=== PATIENT | female | born 1950 | race Caucasian/White ===

== ENCOUNTER 2019-01-23 05:38 | Emergency (ER) | payer MEDICARE, OTHER ==
[2019-01-23 06:02] VITALS: BP 147/68; PULSE 85
--- NOTE | 2019-01-23 06:56 | EDM.PDOC ---
ED HPI GENERAL MEDICAL PROBLEM - General Chief Complaint: Upper Extremity Injury/Pain Stated Complaint: Right shoulder pain; fall Time Seen by Provider: 01/23/19 06:19 Source of Information: Reports: Patient History Limitations: Reports: No Limitations - History of Present Illness INITIAL COMMENTS - FREE TEXT/NARRATIVE: Patient tripped over a suitcase left in the [place]ilez while trying to go and use the bathroom this morning. Landed on her right shoulder. Has right shoulder pain but denies any other injuries. Did not hit head. No neck/back pain. No numbness or tingling of limbs. No weakness. No other acute pain complaint. Right Shoulder Pain Score (Numeric/FACES): 4 - Related Data Allergies Allergy/AdvReac Type Severity Reaction Status Date / Time sulfamethoxazole Allergy Rash Verified 01/23/19 05:42 [From Bactrim] tramadol Allergy Nausea and Verified 01/23/19 05:42 Vomiting trimethoprim [From Bactrim] Allergy Rash Verified 01/23/19 05:42 Home Meds: Home Meds Albuterol [Ventolin HFA] 8 gm INH Q4H PRN 10/20/15 [History] Aspirin [Tiffany Chewable] 81 mg PO DAILY 10/20/15 [History] Fluticasone Propionate [Flonase] 0 gm NASBOTH DAILY PRN 10/20/15 [History] Fluticasone/Salmeterol [Advair 250-50 Diskus] 1 puff PO DAILY 10/20/15 [History] Ipratropium/Albuterol Sulfate [Iprat-Albut 0.5-3(2.5) mg/3 ml] 1 ampule PO Q4H PRN 10/20/15 [History] Losartan [Cozaar] 1 tab PO DAILY 10/20/15 [History] Montelukast [Singulair] 10 mg PO DAILY 10/20/15 [History] Multivitamin with Minerals [Agapito Multivitamin with Mineral] 1 tab PO DAILY PRN 10/20/15 [History] Simvastatin 1 tab PO DAILY 10/20/15 [History] Venlafaxine [Effexor XR 24 Hr] 75 mg PO DAILY 10/20/15 [History] Omeprazole 40 mg PO DAILY 04/29/16 [History] Melatonin 10 mg PO BEDTIME PRN 01/23/19 [History] Past Medical History HEENT History: Reports: Impaired Vision Other HEENT History: wears glasses Cardiovascular History: Reports: High Cholesterol, Hypertension Respiratory History: Reports: Asthma, COPD Gastrointestinal History: Reports: GERD Musculoskeletal History: Reports: Fracture Psychiatric History: Reports: Depression Endocrine/Metabolic History: Reports: Obesity/BMI 30+ Oncologic (Cancer) History: Reports: Breast - Infectious Disease History Infectious Disease History: Reports: Chicken Pox - Past Surgical History HEENT Surgical History: Reports: Other (See Below) Other HEENT Surgeries/Procedures: Full upper and lower dentures GI Surgical History: Reports: Juan Fundoplication Female Surgical History: Reports: Hysterectomy, Mastectomy, Other (See Below) Oncologic Surgical History: Reports: Mastectomy Social & Family History - Tobacco Use Smoking Status *Q: Former Smoker Used Tobacco, but Quit: Yes Month/Year Tobacco Last Used: 30 - Caffeine Use Caffeine Use: Reports: Coffee, Soda - Recreational Drug Use Recreational Drug Use: No Review of Systems - Review of Systems Review Of Systems: See Below Constitutional: Reports: No Symptoms Eyes: Denies: Blurred Vision, Vision Change Ears: Reports: No Symptoms Nose: Reports: No Symptoms Mouth/Throat: Reports: No Symptoms Respiratory: Reports: No Symptoms Cardiovascular: Reports: No Symptoms GI/Abdominal: Reports: No Symptoms Genitourinary: Reports: No Symptoms Musculoskeletal: Reports: Shoulder Pain, Joint Pain, Muscle Stiffness. Denies: Neck Pain, Arm Pain, Back Pain, Hand Pain, Leg Pain, Foot Pain, Joint Swelling Skin: Reports: No Symptoms Neurological: Reports: No Symptoms Psychiatric: Reports: No Symptoms ED EXAM, GENERAL - Physical Exam Exam: See Below Exam Limited By: No Limitations General Appearance: Alert, WD/WN, No Apparent Distress Eye Exam: Bilateral Eye: EOMI, PERRL Ears: Normal External Exam Nose: No: Nasal Deformity, Nasal Swelling, Nasal Drainage Throat/Mouth: Normal Lips, Normal Voice, No Airway Compromise Head: Atraumatic, Normocephalic Neck: Supple, Non-Tender Respiratory/Chest: No Respiratory Distress, Lungs Clear, Normal Breath Sounds, No Accessory Muscle Use, Chest Non-Tender Cardiovascular: Normal Peripheral Pulses, Regular Rate, Rhythm, No Edema, No Murmur GI/Abdominal: Soft, Non-Tender (Female) Exam: Deferred Rectal (Female) Exam: Deferred Back Exam: Other (mild tenderness over right scapula/posterior rotator cuff). No: CVA Tenderness (L), CVA Tenderness (R) Extremities: Normal Capillary Refill, Limited Range of Motion (right shoulder secondary to pain. Able to touch right hand to opposite hip and move hand behind and touch her back. Pain/discomfort with abduction. Sensation appears intact. Straw Boss intact. No deformity of shoulder noted. Diffuse pain with palpation entire rotator cuff. Right arm otherwise nontender. Scapula appeared intact. Other limbs non-tender. ) Neurological: Alert, Oriented, Normal Cognition, Normal Gait Psychiatric: Normal Affect, Normal Mood Skin Exam: Warm, Dry, Intact, Normal Color Course - Vital Signs Last Recorded V/S: Last Vital Signs Temp 36.6 C 01/23/19 06:01 Pulse 85 01/23/19 06:01 Resp 19 01/23/19 06:01 BP 147/68 H 01/23/19 06:01 Pulse Ox 95 01/23/19 06:01 - Orders/Labs/Meds Orders: Active Orders 24 hr Category Date Time Status Shoulder Comp Rt [CR] Stat Exams 01/23/19 05:58 Taken - Radiology Interpretation Free Text/Narrative:: Xray of shoulder taken. Questionable area noted on scapula on Y view that was felt to be possible fracture. Reviewed by Radiology () and he felt that the xray was normal. - Re-Assessments/Exams Free Text/Narrative Re-Assessment/Exam: Patient's shoulder placed in sling for protection and comfort. Single bottle of T#3 given to the patient to help with pain. Recommend that she get rechecked in 2-3 days by her primary provider. She may consider going to Ortho walk-in at [facility] or [facility] if pain has not improved at all. It may need to be considered to have an MRI to look for soft tissue/ligament damage and this will also allow bony structures to be more closely observed. Precautions reviewed. Departure - Departure Time of Disposition: 06:51 Disposition: Home, Self-Care 01 Condition: Good Clinical Impression: Right shoulder injury Qualifiers: Encounter type: initial encounter Qualified Code(s): S49.91XA - Unspecified injury of right shoulder and upper arm, initial encounter Fall Qualifiers: Encounter type: initial encounter Qualified Code(s): W19.XXXA - Unspecified fall, initial encounter - Discharge Information *PRESCRIPTION DRUG MONITORING PROGRAM REVIEWED*: Not Applicable *COPY OF PRESCRIPTION DRUG MONITORING REPORT IN PATIENT ERIC: Not Applicable Instructions: Shoulder Pain, [id number] Referrals: Annetta Salvador PA-C [Primary Care Provider] - Forms: ED Department Discharge Additional Instructions: Take the T#3 one tablet every 6 hours and add one single regular Tylenol tablet (325mg) so that you also get a full dose of Tylenol to help with the pain. Wear sling for comfort and protection. OK to take the arm out at times to let it hang and perform gentle range of motion exercises. If pain has not improved at all within 2-3 days, get rechecked. You can go to the Ortho walk-in clinic in [place] (both [facility] have one) where Ortho can take a close look at your shoulder and decide if further imaging is needed. Otherwise follow up with your regular provider locally if you prefer. Follow up otherwise as needed if additional problems are experienced. - My Orders Last 24 Hours: My Active Orders 01/23/19 05:58 Shoulder Comp Rt [CR] Stat - Assessment/Plan Last 24 Hours: My Active Orders 01/23/19 05:58 Shoulder Comp Rt [CR] Stat
== END 2019-01-23 07:10 | disposition home or self-care (01) ==
LOC: LL.ED 05:38
DX: S49.91XA Unspecified injury of right shoulder and upper arm, initial encounter (principal); I10 Essential (primary) hypertension; E66.9 Obesity, unspecified; J44.9 Chronic obstructive pulmonary disease, unspecified; K21.9 Gastro-esophageal reflux disease without esophagitis; F32.9 Major depressive disorder, single episode, unspecified; Z90.710 Acquired absence of both cervix and uterus; Z79.82 Long term (current) use of aspirin; Z88.2 Allergy status to sulfonamides; Z88.5 Allergy status to narcotic agent; Z88.1 Allergy status to other antibiotic agents; Z87.891 Personal history of nicotine dependence; W18.09XA Striking against other object with subsequent fall, initial encounter
CPT/HCPCS: 73030-RT; 99283

== ENCOUNTER 2019-05-15 13:14 | Emergency (ER) | payer MEDICARE, OTHER ==
[2019-05-15] MEDS ORDERED: Sodium Chloride 0.9% 10 ML Syringe FLUSH PRN (13:33)
--- NOTE | 2019-05-15 13:33 | EDM.PDOC ---
ED HPI GENERAL MEDICAL PROBLEM - General Chief Complaint: Cardiovascular Problem Stated Complaint: cough Time Seen by Provider: 05/15/19 13:30 Source of Information: Reports: Patient, Old Records ([facility] EMR. No paper hospital chart available.), Other ([facility]) History Limitations: Reports: No Limitations - History of Present Illness INITIAL COMMENTS - FREE TEXT/NARRATIVE: The patient was brought to the emergency room via private automobile by her for evaluation of progressive yellowish productive cough during the last 3 weeks with some occasional wheezing and fever and chills during the last 4 days. Patient did take 650 mg of Tylenol and her Proventil inhaler yesterday evening, however no antipyretic or other pulmonary medications today. Her granddaughter did have a viral bronchitis/infection about 1 week ago with no antibiotic therapy or other known exposure to infection. She denies any sore throat, however some mild 3/10 bilateral lower posterior pleuritic type symptoms. Patient did receive her early influenza booster 2 days ago by her history. The patient denies any chest pain/pressure, heart flutter, dizziness, orthostasis, orthopnea, diaphoresis, paresthesias, recent decreased exercise tolerance, or any other anginal-type symptoms. No recent history of abdominal pain, heartburn, nausea, diarrhea, melena, gross hematochezia, or any food intolerance, including fatty foods, etc.. She denies any gross hematuria, colic , or other UTI symptoms. Onset: Gradual, Other (As above) Duration: Week(s):, Constant Location: Reports: Other (No pain). Denies: Head, Face, Chest, Abdomen, Back, Upper Extremity, Left, Upper Extremity, Right, Radiates to Quality: Reports: Ache, Same as Previous Episode Severity: Mild Improves with: Reports: None Worsens with: Reports: None Context: Reports: Sick Contact (As above), Other (As above). Denies: Trauma Associated Symptoms: Reports: Chest Pain (Pleurisy as above), Cough, cough w sputum, Fever/Chills (Temperature not measured). 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(s) (As above) Bilateral Lower Chest Pain Score (Numeric/FACES): 3 - Related Data Allergies Allergy/AdvReac Type Severity Reaction Status Date / Time sulfamethoxazole Allergy Rash Verified 05/15/19 13:27 [From Bactrim] tramadol Allergy Nausea and Verified 05/15/19 13:27 Vomiting trimethoprim [From Bactrim] Allergy Rash Verified 05/15/19 13:27 Home Meds: Home Meds Albuterol [Ventolin HFA] 8 gm INH Q4H PRN 10/20/15 [History] Aspirin [Tiffany Chewable Aspirin] 81 mg PO DAILY 10/20/15 [History] Fluticasone Propionate [Flonase] 1 spray NASBOTH DAILY PRN 10/20/15 [History] Fluticasone/Salmeterol [Advair 250-50 Diskus] 1 puff PO BID 10/20/15 [History] Ipratropium/Albuterol Sulfate [Iprat-Albut 0.5-3(2.5) mg/3 ml] 1 ampule PO Q4H PRN 10/20/15 [History] Montelukast [Singulair] 10 mg PO DAILY 10/20/15 [History] Multivitamin with Minerals [Agapito Multivitamin with Mineral] 1 tab PO DAILY PRN 10/20/15 [History] Simvastatin 1 tab PO DAILY 10/20/15 [History] Omeprazole 40 mg PO DAILY 04/29/16 [History] Melatonin 10 mg PO BEDTIME PRN 01/23/19 [History] Losartan Potassium 100 mg PO DAILY 05/15/19 [History] Venlafaxine HCl [Venlafaxine ER] 150 mg PO DAILY@14 05/15/19 [History] Past Medical History HEENT History: Reports: Allergic Rhinitis, Impaired Vision. Denies: Cataract, Glaucoma, Hard of Hearing, Macular Degeneration, Otitis Media, Retinal Detachment Other HEENT History: Patient wears glasses. Seasonal allergies. Cardiovascular History: Reports: Heart Murmur, High Cholesterol, Hypertension, Other (See Below). Denies: Afib, Aneurysm, Arrhythmia, Blood Clots/VTE/DVT, CAD , Cardiomyopathy, Heart Failure, UT, PVD, Syncope Other Cardiovascular History: Previous benign functional heart murmur. Respiratory History: Reports: Asthma, Bronchitis, Recurrent, COPD, Intubation, Previous, Pneumonia, Recurrent, Sleep Apnea, Other (See Below). Denies: Intubation, Difficult, PE, Pneumothorax, TB Other Respiratory History: She is compliant with her CPAP for her obstructive sleep apnea with history of nocturnal hypoxia requiring 1 L/min bleed in her CPAP.. Gastrointestinal History: Reports: Cholelithiasis, Chronic Constipation, Colon Polyp, Diverticulosis, GERD, Hemorrhoids, Hiatal Hernia, Pancreatitis, Other ( See Below). Denies: Bowel Obstruction, Celiac Disease, Chronic Diarrhea, Fecal Incontinence, Gastritis, GI Bleed, Hepatitis, Inflammatory Bowel Disease, Irritable Bowel Syndrome, Jaundice, PUD Other Gastrointestinal History: History of acute pancreatitis secondary to cholelithiasis/cholecystitis with surgery as below in 2016. Possible sepsis at that time. Fatty liver secondary to hyperlipidemia. Benign hepatic cyst. Dysphagia in 2010 requiring esophageal dilatation as below. Genitourinary History: Reports: Urinary Incontinence, UTI, Recurrent, Other ( See Below). Denies: Acute Renal Failure, Chronic Renal Insuffiency, Renal Calculus, STD Other Genitourinary History: Prolapsed bladder. Benign left renal cyst by CT scan and MRI. 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 Denies: Dysfunctional Uterine Bleeding, Fibroids, Spontaneous , Therapeutic : 4 Para: 3 LMP (Approximate): Other (See Below) Other BARREL TURNER History: Surgical menopause with hysterectomy and concurrent bladder suspension on 06/29/12 secondary to prolapsed uterus and endometriosis. Otherwise, Full term without complications during pregnancies or deliveries. Musculoskeletal History: Reports: Arthritis, Back Pain, Chronic, Fracture, Neck Pain, Chronic, Osteoarthritis, Other (See Below). Denies: Amputation, Gout, Osteoporosis, RA, SLE Other Musculoskeletal History: Mild right shoulder rotator cuff tear with moderate osteoarthritis by MRI in January 2019. Proximal left thumb filling-year- old fracture at about age 36. Moderate kyphosis. Neurological History: Reports: None. Denies: Cerebral Aneurysms, Concussion, CVA, Headaches, Chronic, Head Trauma, Migraines, MS, Seizure, TIA, Vertigo Psychiatric History: Reports: Addiction, Anxiety, Depression, Other (See Below) . Denies: Abuse, Victim of, ADD, ADHD, Psych Hospitalization(s), PTSD, Suicide Attempt, Suicidal Ideation Other Psychiatric History: History of alcohol abuse between ages 20 and 33 with outpatient addiction treatment required. Endocrine/Metabolic History: Reports: Obesity/BMI 30+, Other (See Below). Denies: Diabetes, Gestational, Diabetes, Type I, Diabetes, Type II, Diabetes Mellitus, Type 3c, Hypothyroidism, IDDM, Osteopenia, Osteoporosis Other Endocrine/Metabolic History: Prediabetes. Hematologic History: Reports: Anemia, Blood Transfusion(s), Other (See Below). Denies: Iron Deficiency Other Hematologic History: Transfusion under to chemotherapy after mastectomy. Immunologic History: Reports: None. Denies: AIDS, HIV, SLE Oncologic (Cancer) History: Reports: Breast, Other (See Below). Denies: Basal Cell Carcinoma, Cervix, Hodgkin's Lymphoma, Leukemia, Lymphoma, Malignant Melanoma, Metastatic, Non-Hodgkin's Lymphoma, Ovarian, Squamous Cell Carcinoma, Uterine Other Oncologic History: Left-sided estrogen receptor positive breast cancer with subsequent mastectomy and chemotherapy. Dermatologic History: Reports: None. Denies: Eczema, Psoriasis - Infectious Disease History Infectious Disease History: Reports: Chicken Pox, Mumps, Other (See Below). Denies: C-Difficile, Measles, Meningitis, Mononucleosis, MRSA, Pertussis ( Whooping Cough), Rheumatic Fever, Rubella, Scarlet Fever, Shingles, TB, VRE Other Infectious Disease History: History of sepsis 2, including at time of cholecystitis in April 2016 as above. - Past Surgical History HEENT Surgical History: Reports: Oral Surgery, Other (See Below). Denies: Adenoidectomy, Cataract Surgery, Eye Surgery, Laser Surgery, LASIK, Myringotomy w Tube(s), Naso-Sinus Surgery, Tonsillectomy Other HEENT Surgeries/Procedures: Nasal septum repair at about age 30. Complete teeth extraction with current full upper and lower dentures. Cardiovascular Surgical History: Reports: None. Denies: Varicose, Vascular Surgery Respiratory Surgical History: Reports: None. Denies: Thoracentesis GI Surgical History: Reports: Cholecystectomy, Colonoscopy, EGD, Juan Fundoplication, Polypectomy, Other (See Below). Denies: Appendectomy, Hernia, Abdominal, Hernia, Inguinal Other GI Surgeries/Procedures: Laparoscopic cholecystectomy on 05/02/16 secondary to acute cholecystitis with secondary pancreatitis as above. Juan fundoplication at age 35. Last colonoscopy on 04/14/19 with previous EGD and colonoscopy on 03/07/16 and previous distant colonoscopy with history of excision of a benign unknown type of colonic polyp at that time. EGD with esophageal dilatation on 03/07/11. Female Surgical History: Reports: Breast Biopsy, Breast Implant, Breast Reconstruction, D&C, Hysterectomy, Mastectomy, Salpingo-Oophorectomy, Other ( See Below). Denies: Tubal Ligation Other Female Surgeries/Procedures: D&C 8 months after first vaginal delivery secondary to persistent bleeding. Hysterectomy and bladder suspension on . Subsequent bilateral salpingo-oophorectomy in 2011 secondary to breast cancer. Left-sided mastectomy with sentinel node biopsies in 2009 with subsequent left-sided saline breast implant and breast reconstruction and previous positive left-sided breast biopsy as above. Endocrine Surgical History: Reports: None. Denies: Thyroid Biopsy Neurological Surgical History: Denies: C-Spine, Discectomy, Laminectomy, Lumbar Spine, Sacral Spine, Spinal Fusion Musculoskeletal Surgical History: Reports: Other (See Below). Denies: Arthroscopic Procedure, Carpal Tunnel, Ganglion Cyst, Joint Replacement, ORIF, Shoulder Surgery Other Musculoskeletal Surgeries/Procedures:: Lateral bunionectomy with repair of fourth toe hammertoe on her left foot on 09/06/15. Oncologic Surgical History: Reports: Biopsy of Breast, Mastectomy, Other (See Below) Other Oncologic Surgeries/Procedures: Left breast biopsy and meniscectomy as above. Dermatological Surgical History: Reports: None - Past Imaging History Past Imaging History: Reports: CAT Scan (Abdomen and pelvis on 04/30/16.), DEXA Scan (02/16/16), Mammogram (Last Right-sided mammogram on 05/12/19.), MRI (Right shoulder on 01/25/19. Abdomen and pelvis with and without contrast on 05/26/17.) Social & Family History - Family History Cardiac: Reports: CAD, Other (See Below) Other Cardiac Family History: Father with coronary artery disease. Neurological: Reports: CVA, Other (See Below) Other Neurological Family History: Father with initial CVA at age 57 with subsequent fatal CVA at age 63. Endocrine/Metabolic: Reports: Diabetes, type II, Other (See Below) Other Endocrine/Metabolic Family History: Sisters 3 and paternal uncle with diabetes mellitus. Oncologic: Reports: Other (See Below) Other Oncologic Family History: Paternal aunt with fatal ovarian cancer at an unknown age. Sister with breast cancer at age 56. Another sister with fatal brain cancer at age 61. Brother with fatal metastatic esophageal and/or colon cancer at age 68. Mother with fatal metastatic colon cancer at age 68 with pulmonary metastases. - Tobacco Use Smoking Status *Q: Former Smoker Tobacco Use Within Last Twelve Months: No Years of Tobacco use: 28 Packs/Tins Daily: 1 Packs/Tins Daily Comment: She smoked one pack per day between ages 11 and 39. Used Tobacco, but Quit: Yes Smoking Cessation Information Provided To Patient: No Second Hand Smoke Exposure: Yes Source of Second Hand Smoke Exposure: smokes Second Hand Smoke Education Provided: Yes - Caffeine Use Caffeine Use: Reports: Coffee, Soda - Living Situation & Occupation Living situation: Reports: (1985), with Family () ED ROS GENERAL - Review of Systems Review Of Systems: ROS reveals no pertinent complaints other than HPI. ED EXAM, GENERAL - Physical Exam Exam: See Below Exam Limited By: No Limitations General Appearance: Alert, WD/WN, No Apparent Distress Eye Exam: Bilateral Eye: EOMI, Normal Inspection (No nystagmus. Patient wearing glasses. Moderate bilateral arcus senilis.), PERRL Ears: Normal External Exam, Normal Canal, Hearing Grossly Normal, Normal TMs Nose: Normal Inspection, Normal Mucosa, No Blood Throat/Mouth: Normal Lips, Normal Voice, No Airway Compromise. No: Normal Teeth (Complete dentures uppers and lowers), Normal Oropharynx (Trace erythema in the posterior pharynx with no pinpoint white exudates or peritonsillar abscess), Dysphagia, Perioral Cyanosis Head: Atraumatic, Normocephalic. No: Facial Swelling, Facial Tenderness, Sinus Tenderness Neck: Normal Inspection, Supple, Non-Tender, Full Range of Motion. No: Carotid Bruit, Lymphadenopathy (L), Lymphadenopathy (R), Thyromegaly Respiratory/Chest: No Respiratory Distress, No Accessory Muscle Use, Chest Non- Tender, Rhonchi (Occasional bilateral diffuse), Wheezing (Occasional bilateral diffuse). No: Pleural Rub, Retractions Cardiovascular: Normal Peripheral Pulses, Regular Rate, Rhythm, No Edema, No Gallop, No JVD, No Murmur, No Rub. No: Gallop/S3, Gallop/S4, Friction Rub Peripheral Pulses: 2+: Radial (L), Radial (R) GI/Abdominal: Normal Bowel Sounds, Soft, Non-Tender, No Organomegaly, No Distention, No Abnormal Bruit, No Mass, Other (obese). No: Guarding (Female) Exam: Deferred Rectal (Female) Exam: Deferred Back Exam: Full Range of Motion, Other (Moderate kyphosis). No: CVA Tenderness (L), CVA Tenderness (R), Muscle Spasm, Paraspinal Tenderness, Vertebral Tenderness Extremities: Normal Inspection, Normal Range of Motion, Non-Tender, No Pedal Edema, Normal Capillary Refill. No: Krystal's Sign Neurological: Alert, Oriented, CN II-XII Intact, Normal Cognition, Normal Gait, No Motor/Sensory Deficits Psychiatric: Normal Affect Skin Exam: Warm, Dry, Intact, Normal Color, No Rash. No: Diaphoretic, Wound/ Incision Lymphatic: No Adenopathy Course - Vital Signs Last Recorded V/S: Last Vital Signs Temp 36.9 C 05/15/19 13:18 Pulse 77 05/15/19 14:29 Resp 19 05/15/19 14:29 BP 125/55 L 05/15/19 14:29 Pulse Ox 94 L 05/15/19 14:29 Vital Signs - 24 hr 05/15/19 05/15/19 05/15/19 13:18 13:31 13:33 Temperature [ 36.9 C Temporal] Pulse, 87 83 Peripheral [ Left Pulse Oximetry] Respiratory 18 Rate Blood Pressure 136/91 H 135/72 [Right Upper Arm] O2 Sat by Pulse 97 92 L Oximetry O2 Sat by Pulse 95 Oximetry [Room Air] 05/15/19 05/15/19 05/15/19 13:46 13:58 14:15 Temperature [ Temporal] Pulse, 74 69 80 Peripheral [ Left Pulse Oximetry] Respiratory 20 20 Rate Blood Pressure 134/72 130/64 148/66 H [Right Upper Arm] O2 Sat by Pulse 94 L 95 Oximetry O2 Sat by Pulse Oximetry [Room Air] 05/15/19 14:29 Temperature [ Temporal] Pulse, 77 Peripheral [ Left Pulse Oximetry] Respiratory 19 Rate Blood Pressure 125/55 L [Right Upper Arm] O2 Sat by Pulse 94 L Oximetry O2 Sat by Pulse Oximetry [Room Air] - Orders/Labs/Meds Orders: Active Orders 24 hr Category Date Time Status Cardiac Monitoring [RC] CONTINUOUS Care 05/15/19 13:33 Active Communication Order [RC] ROUTINE Care 05/15/19 13:33 Active Oxygen Therapy, ED [RC] PRN Care 05/15/19 13:33 Active Peripheral IV Care [RC] . DIRECTED Care 05/15/19 13:34 Active Pulse Oximetry [RC] CONTINUOUS Care 05/15/19 13:33 Active RT Aerosol Therapy [RC] ASDIRECTED Care 05/15/19 13:40 Active Up With Assistance [RC] ASDIRECTED Care 05/15/19 13:33 Active Nothing Per Oral Diet [DIET] Diet 05/15/19 Breakfast Active Chest 2V [CR] Stat Exams 05/15/19 13:33 Taken CULTURE SPUTUM + SMEAR [] Urgent Lab 05/15/19 13:35 Received CULTURE STREP A CONFIRMATION [] Stat Lab 05/15/19 13:35 Results STREP SCRN A RAPID W CULT CONF [] Stat Lab 05/15/19 13:35 Results Sodium Chloride 0.9% [Saline Flush] Med 05/15/19 13:33 Active 10 ml FLUSH ASDIRECTED PRN Obtain Past Medical Record [OM.PC] Stat Oth 05/15/19 13:33 Active Peripheral IV Insertion Adult [OM.PC] Stat Oth 05/15/19 13:33 Ordered Resuscitation Status Routine Resus Stat 05/15/19 13:33 Ordered Medication Orders Sodium Chloride (Saline Flush) 10 ml FLUSH ASDIRECTED PRN PRN Reason: Keep Vein Open Last Admin: 05/15/19 13:52 Dose: 10 ml Labs: Laboratory Tests 05/15/19 05/15/19 05/15/19 Range/Units 13:45 13:45 13:45 WBC 8.4 (4.0-10.2) K/uL RBC 4.88 (3.77-5.09) M/uL Hgb 12.9 (11.7-15.5) g/dL Hct 40.6 (34.0-46.0) % MCV 83.2 L D (84.0-98.0) fL MCH 26.4 L (28.2-33.3) pg MCHC 31.8 (31.7-36.0) g/dL RDW 14.2 H (11.2-14.1) % Plt Count 213 (150-350) K/uL Neut % (Auto) 69.3 (45.0-80.0) % Lymph % (Auto) 20.1 (10.0-50.0) % Hidalgo % (Auto) 7.6 (2.0-14.0) % Eos % (Auto) 2.6 (0.0-5.0) % Baso % (Auto) 0.4 (0.0-2.0) % Neut # (Auto) 5.80 (1.40-7.00) K/uL Lymph # (Auto) 1.68 (0.50-3.50) K/uL Hidalgo # (Auto) 0.64 (0.00-1.00) K/uL Eos # (Auto) 0.22 (0.00-0.50) K/uL Baso # (Auto) 0.03 (0.00-0.20) K/uL Sodium 141 (136-145) mmol/L Potassium 4.3 (3.5-5.1) mmol/L Chloride 106 (98-107) mmol/L Carbon Dioxide 25.8 (21.0-32.0) mmol/L BUN 13 (7-18) mg/dL Creatinine 0.69 (0.51-1.17) mg/dL Est Cr Clr Drug Dosing 70.22 mL/min Estimated GFR (MDRD) > 60 mL/min Glucose 92 (74-106) mg/dL Lactic Acid 0.7 (0.4-2.0) mmol/L Calcium 9.6 (8.5-10.1) mg/dL Magnesium 1.9 (1.8-2.4) mg/dL Total Bilirubin 0.2 (0.2-1.0) mg/dL AST 23 (15-37) U/L ALT 31 (12-78) U/L Alkaline Phosphatase 108 (46-116) IU/L Creatine Kinase 94 (26-308) U/L Creatine Kinase Index 1.2 (0.0-2.5) % CK-MB (CK-2) 1.10 (0.00-3.60) ng/mL Troponin I 0.000 (0.000-0.056) ng/mL NT-Pro-B Natriuret Pep 12 (0-125) pg/mL Total Protein 7.2 (6.4-8.2) g/dL Albumin 3.4 (3.4-5.0) g/dL TSH, Ultra Sensitive 1.718 (0.358-3.740) mIU/mL Microbiology 05/15/19 13:35 Influenza Type A Antigen Screen - Final Nasal, Left NEGATIVE INFLUENZA A VIRUS AG REFERENCE RANGE: NEGATIVE Influenza Type B Antigen Screen - Final NEGATIVE INFLUENZA B VIRUS AG REFERENCE RANGE: NEGATIVE 05/15/19 13:35 Group A Streptococcus Rapid Screen - Final Throat NEGATIVE STREP A SCREEN REFERENCE RANGE: NEGATIVE Meds: Medications Generic Name Dose Route Start Last Admin Trade Name Freq PRN Reason Stop Dose Admin Sodium Chloride 10 ml 05/15/19 13:33 05/15/19 13:52 Saline Flush FLUSH 10 ml ASDIRECTED PRN Administration Keep Vein Open Discontinued Medications Generic Name Dose Route Start Last Admin Trade Name Freq PRN Reason Stop Dose Admin Albuterol/Ipratropium 3 ml 05/15/19 13:40 05/15/19 13:59 Duoneb 3.0-0.5 Mg/3 Ml NEB 05/15/19 13:41 3 ml ONETIME ONE Administration Budesonide 0.5 mg 05/15/19 13:41 05/15/19 14:07 Pulmicort NEB 05/15/19 13:42 0.5 mg ONETIME ONE Administration Methylprednisolone Acetate 80 mg 05/15/19 14:38 05/15/19 14:41 Depo-Medrol IM 05/15/19 14:39 80 mg ONETIME ONE Administration - Radiology Interpretation Free Text/Narrative:: monitoring tech shows normal sinus rhythm with heart rate in the 60s to 80s with no ectopy or arrhythmia. Chest x-ray, PA and lateral, shows borderline cardiomegaly with mild probable pulmonary hypertension and/or centralized CHF. Mild diffuse COPD changes with no evidence of significant pulmonary infiltrates, pneumothorax, etc. Moderate osteoarthritic changes and kyphosis noted. Departure - Departure Time of Disposition: 15:00 Disposition: Home, Self-Care 01 Condition: Good Clinical Impression: Bronchitis, High cholesterol, Tobacco abuse counseling, COPD (chronic obstructive pulmonary disease), Hyperlipemia, Mixed anxiety depressive disorder GERD (gastroesophageal reflux disease) Qualifiers: Esophagitis presence: without esophagitis Qualified Code(s): K21.9 - Gastro- esophageal reflux disease without esophagitis Sleep apnea Qualifiers: Sleep apnea type: idiopathic sleep related nonobstructive alveolar hypoventilation Qualified Code(s): G47.34 - Idiopathic sleep related nonobstructive alveolar hypoventilation Asthma Qualifiers: Asthma severity: mild Asthma persistence: intermittent Asthma complication type : with acute exacerbation Qualified Code(s): J45.21 - Mild intermittent asthma with (acute) exacerbation Hypertension Qualifiers: Hypertension type: essential hypertension Qualified Code(s): I10 - Essential ( primary) hypertension Instructions: Chronic Obstructive Pulmonary Disease, [id number], Acute Bronchitis, Adult, [id number] Referrals: Annetta Salvador PA-C [Primary Care Provider] - Forms: ED Department Discharge Additional Instructions: 1. Follow up with your regular provider in 10-14 days as needed, if symptoms persist. Bring these discharge instructions with you to that visit.. 2. Tylenol 650 mg by mouth every 4 hours and/or OTC ibuprofen 2-3 tabs by mouth every 6 hours with food as directed./needed. You may stagger these medications for 48-72 hours only, which essentially means that you are receiving a pain medication about every 2 hours. 3. Compliance with nebulizer at least during the next 10 days as discussed 4. Hygiene precautions as discussed 5. Immediately after this visit verify that your cellular telephone's voicemail has been activated and is empty. Also verify that your home telephone 's answering machine is operating properly and has space to receive messages. Note that it is sometimes necessary for us to be able to contact you at a later date to discuss your medical care. 6. Please remember that we are ALWAYS here for you and want to answer any questions you may have. Feel free to call the hospital any time and we call you back CHAIM. - Problem List & Annotations (1) Bronchitis SNOMED Code(s): 94588972 Code(s): J40 - BRONCHITIS, NOT SPECIFIED ACUTE OR CHRONIC Status: Acute Priority: High Current Visit: Yes Annotation/Comment:: Despite three- week history and mild worsening over the last few days no indication for antibiotic therapy at this time. Symptomatic relief as per discharge instructions. (2) Asthma SNOMED Code(s): 005651809 Code(s): J45.909 - UNSPECIFIED ASTHMA, UNCOMPLICATED Status: Chronic Priority: High Current Visit: Yes Annotation/Comment:: Mild exacerbation of her COPD/asthma with triple nebulizer treatment given in the emergency room. Compliance with medication strongly encouraged. Mild probable viral bronchitis as above. Close follow-up by regular provider. Qualifiers: Asthma severity: mild Asthma persistence: intermittent Asthma complication type: with acute exacerbation Qualified Code(s): J45.21 - Mild intermittent asthma with (acute) exacerbation (3) GERD (gastroesophageal reflux disease) SNOMED Code(s): 828393194 Code(s): K21.9 - GASTRO-ESOPHAGEAL REFLUX DISEASE WITHOUT ESOPHAGITIS Status: Chronic Priority: Medium Current Visit: Yes Annotation/Comment:: Stable by history with no current abdominal complaints with current medical therapy. Qualifiers: Esophagitis presence: without esophagitis Qualified Code(s): K21.9 - Gastro -esophageal reflux disease without esophagitis (4) Hypertension SNOMED Code(s): 74974317 Code(s): I10 - ESSENTIAL (PRIMARY) HYPERTENSION Status: Chronic Priority : Medium Current Visit: Yes Annotation/Comment:: Stable in the emergency room. Qualifiers: Hypertension type: essential hypertension Qualified Code(s): I10 - Essential (primary) hypertension (5) COPD (chronic obstructive pulmonary disease) SNOMED Code(s): 22920949 Code(s): J44.9 - CHRONIC OBSTRUCTIVE PULMONARY DISEASE, UNSPECIFIED Status : Chronic Priority: Medium Current Visit: Yes Annotation/Comment:: As above Qualifiers: COPD type: emphysema Emphysema type: panlobular Qualified Code(s): J43.1 - Panlobular emphysema (6) Hyperlipemia SNOMED Code(s): 85447191 Code(s): E78.5 - HYPERLIPIDEMIA, UNSPECIFIED Status: Chronic Priority: Medium Current Visit: Yes Annotation/Comment:: Currently under therapy. Weight loss in moderation advisable. Qualifiers: Hyperlipidemia type: unspecified Qualified Code(s): E78.5 - Hyperlipidemia , unspecified (7) Mixed anxiety depressive disorder SNOMED Code(s): 162621683 Code(s): F41.8 - OTHER SPECIFIED ANXIETY DISORDERS Status: Chronic Priority: Medium Current Visit: Yes Annotation/Comment:: Stable by history (8) Tobacco abuse counseling SNOMED Code(s): 661687643, 604603662, 397096428 Code(s): Z71.6 - TOBACCO ABUSE COUNSELING Status: Chronic Priority: Medium Current Visit: Yes Annotation/Comment:: Patient smokes. Tobacco exposure discussed. They are to have tobacco cessation information. - Problem List Review Problem List Initiated/Reviewed/Updated: Yes - My Orders Last 24 Hours: My Active Orders 05/15/19 13:33 Cardiac Monitoring [RC] CONTINUOUS Communication Order [RC] ROUTINE Oxygen Therapy, ED [RC] PRN Pulse Oximetry [RC] CONTINUOUS Up With Assistance [RC] ASDIRECTED Chest 2V [CR] Stat Sodium Chloride 0.9% [Saline Flush] 10 ml FLUSH ASDIRECTED PRN Obtain Past Medical Record [OM.PC] Stat Peripheral IV Insertion Adult [OM.PC] Stat Resuscitation Status Routine 05/15/19 13:34 Peripheral IV Care [RC] . DIRECTED 05/15/19 13:35 CULTURE SPUTUM + SMEAR [RM] Urgent CULTURE STREP A CONFIRMATION [RM] Stat STREP SCRN A RAPID W CULT CONF [RM] Stat 05/15/19 13:40 RT Aerosol Therapy [RC] ASDIRECTED 05/15/19 Breakfast Nothing Per Oral Diet [DIET] - Assessment/Plan Last 24 Hours: My Active Orders 05/15/19 13:33 Cardiac Monitoring [RC] CONTINUOUS Communication Order [RC] ROUTINE Oxygen Therapy, ED [RC] PRN Pulse Oximetry [RC] CONTINUOUS Up With Assistance [RC] ASDIRECTED Chest 2V [CR] Stat Sodium Chloride 0.9% [Saline Flush] 10 ml FLUSH ASDIRECTED PRN Obtain Past Medical Record [OM.PC] Stat Peripheral IV Insertion Adult [OM.PC] Stat Resuscitation Status Routine 05/15/19 13:34 Peripheral IV Care [RC] . DIRECTED 05/15/19 13:35 CULTURE SPUTUM + SMEAR [RM] Urgent CULTURE STREP A CONFIRMATION [RM] Stat STREP SCRN A RAPID W CULT CONF [RM] Stat 05/15/19 13:40 RT Aerosol Therapy [RC] ASDIRECTED 05/15/19 Breakfast Nothing Per Oral Diet [DIET] Assessment:: As above Plan: As above. Extensive precautions were given to the patient, who is in agreement with the treatment plan. See Patient Instructions for further treatment and plan.
[2019-05-15] MEDS ORDERED: Albuterol/Ipratropium 3.0-0.5 MG/3 ML Neb Soln NEB ONE (13:40)
[2019-05-15] MEDS ORDERED: Budesonide 0.5 MG/2 ML Neb Susp NEB ONE (13:41)
[2019-05-15 14:32] LABS: CHLORIDE,CL 106 mmol/L (98-107); SODIUM,NA 141 mmol/L (136-145)
[2019-05-15 14:33] VITALS: BP 125/55; PULSE 77
[2019-05-15] MEDS ORDERED: methylPREDNISolone Acetate 80 MG/ML SDV IM ONE (14:38)
== END 2019-05-15 15:00 | disposition home or self-care (01) ==
LOC: LL.ED 13:14
DX: J40 Bronchitis, not specified as acute or chronic (principal); E78.5 Hyperlipidemia, unspecified; F41.8 Other specified anxiety disorders; I10 Essential (primary) hypertension; K21.9 Gastro-esophageal reflux disease without esophagitis; G47.34 Idiopathic sleep related nonobstructive alveolar hypoventilation; J45.21 Mild intermittent asthma with (acute) exacerbation; E78.00 Pure hypercholesterolemia, unspecified; J44.9 Chronic obstructive pulmonary disease, unspecified; Z71.6 Tobacco abuse counseling; Z88.2 Allergy status to sulfonamides; Z88.5 Allergy status to narcotic agent; Z79.82 Long term (current) use of aspirin; Z79.899 Other long term (current) drug therapy; Z79.51 Long term (current) use of inhaled steroids; Z87.891 Personal history of nicotine dependence; Z88.1 Allergy status to other antibiotic agents
CPT/HCPCS: 36000; 36415; 71046; 80053; 82550; 82553; 83605; 83735; 83880; 84443; 84484; 85025; 87070; 87081; 87205; 87430; 87804; 94640; 96372; 99283-25; J1040; J7620-GY

== ENCOUNTER 2019-08-25 15:59 | Emergency (ER) | payer MEDICARE, OTHER ==
[2019-08-25 16:07] VITALS: BP 151/67; PULSE 65
--- NOTE | 2019-08-25 16:19 | EDM.PDOC ---
ED HPI GENERAL MEDICAL PROBLEM - General Chief Complaint: Lower Extremity Injury/Pain Stated Complaint: left knee Time Seen by Provider: 08/25/19 16:15 Source of Information: Reports: Patient, Family (), Old Records ([facility] chart/EMR), Other ([place] EMR reviewed on 05/15) History Limitations: Reports: No Limitations - History of Present Illness INITIAL COMMENTS - FREE TEXT/NARRATIVE: The patient was brought to the emergency room via private automobile by her for evaluation of 04/29 sharp left-sided knee pain after she slipped on the ice and fell at home on both of her knees at about 10 AM this morning. The patient was able to go to work and perform her normal work duties without significant problems, however she has had increasing left knee pain since about 13:30 hours this afternoon. She denies any previous left knee injury, joint instability, paresthesias, neurological deficits, neck/back pain, head injury, loss of consciousness, change in mental status, or other complaints or injuries. The patient denies any chest pain/pressure, heart flutter, dizziness, orthostasis, orthopnea, diaphoresis, paresthesias, recent decreased exercise tolerance, or any other anginal-type symptoms. No recent history of abdominal pain, heartburn, nausea, diarrhea, melena, gross hematochezia, or any food intolerance, including fatty foods, etc.. The patient also denies any recent fever, cough, wheezing, dyspnea, etc.. No medications taken to this point, however she did apply ice packs prior to arrival. Onset: Today, Sudden Onset Date: 08/25/19 Onset Time: 10:00 Duration: Constant, Getting Worse Location: Reports: Lower Extremity, Left. 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 Pain Score (Numeric/FACES): 10 - Related Data Allergies Allergy/AdvReac Type Severity Reaction Status Date / Time sulfamethoxazole Allergy Rash Verified 08/25/19 16:06 [From Bactrim] tramadol Allergy Nausea and Verified 08/25/19 16:06 Vomiting trimethoprim [From Bactrim] Allergy Rash Verified 08/25/19 16:06 Home Meds: Home Meds Albuterol [Ventolin HFA] 8 gm INH Q4H PRN 10/20/15 [History] Aspirin [Tiffany Chewable Aspirin] 81 mg PO DAILY 10/20/15 [History] Fluticasone Propionate [Flonase] 1 spray NASBOTH DAILY PRN 10/20/15 [History] Fluticasone/Salmeterol [Advair 250-50 Diskus] 1 puff PO BID 10/20/15 [History] Ipratropium/Albuterol Sulfate [Iprat-Albut 0.5-3(2.5) mg/3 ml] 1 ampule PO Q4H PRN 10/20/15 [History] Montelukast [Singulair] 10 mg PO DAILY 10/20/15 [History] Multivitamin with Minerals [Agapito Multivitamin with Mineral] 1 tab PO DAILY PRN 10/20/15 [History] Simvastatin 1 tab PO BEDTIME 10/20/15 [History] Omeprazole 40 mg PO DAILY 04/29/16 [History] Melatonin 10 mg PO BEDTIME PRN 01/23/19 [History] Losartan Potassium 100 mg PO DAILY 05/15/19 [History] Venlafaxine HCl [Venlafaxine ER] 150 mg PO DAILY@14 05/15/19 [History] Past Medical History HEENT History: Reports: Allergic Rhinitis, Impaired Vision. Denies: Cataract, Glaucoma, Hard of Hearing, Macular Degeneration, Otitis Media, Retinal Detachment Other HEENT History: Patient wears glasses. Seasonal allergies. Cardiovascular History: Reports: Heart Murmur, High Cholesterol, Hypertension, Other (See Below). Denies: Afib, Aneurysm, Arrhythmia, Blood Clots/VTE/DVT, CAD , Cardiomyopathy, Heart Failure, PR, PVD, Syncope Other Cardiovascular History: Previous benign functional heart murmur. Respiratory History: Reports: Asthma, Bronchitis, Recurrent, COPD, Intubation, Previous, Pneumonia, Recurrent, Sleep Apnea, Other (See Below). Denies: Intubation, Difficult, PE, Pneumothorax, TB Other Respiratory History: She is compliant with her CPAP for her obstructive sleep apnea with history of nocturnal hypoxia requiring 1 L/min bleed in her CPAP.. Gastrointestinal History: Reports: Cholelithiasis, Chronic Constipation, Colon Polyp, Diverticulosis, Fatty Liver, GERD, Hemorrhoids, Hiatal Hernia, Pancreatitis, Other (See Below). Denies: Bowel Obstruction, Celiac Disease, Chronic Diarrhea, Fecal Incontinence, Gastritis, GI Bleed, Hepatitis, Inflammatory Bowel Disease, Irritable Bowel Syndrome, Jaundice, PUD Other Gastrointestinal History: History of acute pancreatitis secondary to cholelithiasis/cholecystitis with surgery as below in 2016. Possible sepsis at that time. Fatty liver secondary to hyperlipidemia. Benign hepatic cyst. Dysphagia in 2010 requiring esophageal dilatation as below. Genitourinary History: Reports: Urinary Incontinence, UTI, Recurrent, Other ( See Below). Denies: Acute Renal Failure, Chronic Renal Insuffiency, Renal Calculus, STD Other Genitourinary History: Prolapsed bladder. Benign left renal cyst by CT scan and MRI. CLINICAL CODER History: Reports: Endometriosis, , Prolapsed Uterus. Denies: Dysfunctional Uterine Bleeding, Fibroids, Spontaneous , Therapeutic : 4 Para: 3 LMP (Approximate): Other (See Below) Other CLINICAL CODER History: Surgical menopause with hysterectomy and concurrent bladder suspension on 06/29/12 secondary to prolapsed uterus and endometriosis. Otherwise, Full term without complications during pregnancies or deliveries. Musculoskeletal History: Reports: Arthritis, Back Pain, Chronic, Fracture, Neck Pain, Chronic, Osteoarthritis, Other (See Below). Denies: Amputation, Gout, Osteoporosis, RA, SLE Other Musculoskeletal History: Mild right shoulder rotator cuff tear with moderate osteoarthritis by MRI in January 2019. Proximal left thumb filling-year- old fracture at about age 36. Moderate kyphosis. Neurological History: Reports: None. Denies: Cerebral Aneurysms, Concussion, CVA, Headaches, Chronic, Head Trauma, Migraines, MS, Seizure, TIA, Vertigo Psychiatric History: Reports: Addiction, Anxiety, Depression, Other (See Below) . Denies: Abuse, Victim of, ADD, ADHD, Psych Hospitalization(s), PTSD, Suicide Attempt, Suicidal Ideation Other Psychiatric History: History of alcohol abuse between ages 20 and 33 with outpatient addiction treatment required. Endocrine/Metabolic History: Reports: Obesity/BMI 30+, Other (See Below). Denies: Diabetes, Gestational, Diabetes, Type I, Diabetes, Type II, Diabetes Mellitus, Type 3c, Hypothyroidism, IDDM, Osteopenia, Osteoporosis Other Endocrine/Metabolic History: Prediabetes. Hematologic History: Reports: Anemia, Blood Transfusion(s), Other (See Below). Denies: Iron Deficiency Other Hematologic History: Transfusion secondary to chemotherapy after mastectomy. Immunologic History: Reports: None. Denies: AIDS, HIV, SLE Oncologic (Cancer) History: Reports: Breast, Other (See Below). Denies: Basal Cell Carcinoma, Cervix, Hodgkin's Lymphoma, Leukemia, Lymphoma, Malignant Melanoma, Metastatic, Non-Hodgkin's Lymphoma, Ovarian, Squamous Cell Carcinoma, Uterine Other Oncologic History: Left-sided estrogen receptor positive breast cancer with subsequent mastectomy and chemotherapy. Dermatologic History: Reports: None. Denies: Eczema, Psoriasis - Infectious Disease History Infectious Disease History: Reports: Chicken Pox, Mumps, Other (See Below). Denies: C-Difficile, Measles, Meningitis, Mononucleosis, MRSA, Pertussis ( Whooping Cough), Rheumatic Fever, Rubella, Scarlet Fever, Shingles, TB, VRE Other Infectious Disease History: History of sepsis 2, including at time of cholecystitis in April 2016 as above. - Past Surgical History Head Surgeries/Procedures: Reports: None HEENT Surgical History: Reports: Oral Surgery, Other (See Below). Denies: Adenoidectomy, Cataract Surgery, Eye Surgery, Laser Surgery, LASIK, Myringotomy w Tube(s), Naso-Sinus Surgery, Tonsillectomy Other HEENT Surgeries/Procedures: Nasal septum repair at about age 30. Complete teeth extraction with current full upper and lower dentures. Cardiovascular Surgical History: Reports: None. Denies: Varicose, Vascular Surgery Respiratory Surgical History: Reports: None. Denies: Thoracentesis GI Surgical History: Reports: Cholecystectomy, Colonoscopy, EGD, Juan Fundoplication, Polypectomy, Other (See Below). Denies: Appendectomy, Hernia, Abdominal, Hernia, Inguinal Other GI Surgeries/Procedures: Laparoscopic cholecystectomy on 05/02/16 secondary to acute cholecystitis with secondary pancreatitis as above. Juan fundoplication at age 35. Last colonoscopy on 04/14/19 with previous EGD and colonoscopy on 03/07/16 and previous distant colonoscopy with history of excision of a benign unknown type of colonic polyp at that time. EGD with esophageal dilatation on 03/07/11. Female Surgical History: Reports: Breast Biopsy, Breast Implant, Breast Reconstruction, D&C, Hysterectomy, Mastectomy, Salpingo-Oophorectomy, Other ( See Below). Denies: Tubal Ligation Other Female Surgeries/Procedures: D&C 8 months after first vaginal delivery secondary to persistent bleeding. Hysterectomy and bladder suspension on . Subsequent bilateral salpingo-oophorectomy in 2011 secondary to breast cancer. Left-sided mastectomy with sentinel node biopsies in 2009 with subsequent left-sided saline breast implant and breast reconstruction and previous positive left-sided breast biopsy as above. Endocrine Surgical History: Reports: None. Denies: Thyroid Biopsy Musculoskeletal Surgical History: Reports: Other (See Below). Denies: Arthroscopic Procedure, Carpal Tunnel, Ganglion Cyst, Joint Replacement, ORIF, Shoulder Surgery Other Musculoskeletal Surgeries/Procedures:: Bilateral bunionectomy with repair of fourth toe hammertoe on her left foot on 09/06/15. Oncologic Surgical History: Reports: Biopsy of Breast, Mastectomy, Other (See Below) Other Oncologic Surgeries/Procedures: Left breast biopsy and meniscectomy as above. Dermatological Surgical History: Reports: None - Past Imaging History Past Imaging History: Reports: CAT Scan (Abdomen and pelvis on 04/30/16.), DEXA Scan (02/16/16), Mammogram (Last Right-sided mammogram on 05/12/19.), MRI (Right shoulder on 01/25/19. Abdomen and pelvis with and without contrast on 05/26/17.) Social & Family History - Family History Cardiac: Reports: CAD, Other (See Below) Other Cardiac Family History: Father with coronary artery disease. Neurological: Reports: CVA, Other (See Below) Other Neurological Family History: Father with initial CVA at age 57 with subsequent fatal CVA at age 63. Endocrine/Metabolic: Reports: Diabetes, type II, Other (See Below) Other Endocrine/Metabolic Family History: Sisters 3 and paternal uncle with diabetes mellitus. Oncologic: Reports: Brain, Breast, Colon, Esophageal, Ovarian, Other (See Below) Other Oncologic Family History: Paternal aunt with fatal ovarian cancer at an unknown age. Sister with breast cancer at age 56. Another sister with fatal brain cancer at age 61. Brother with fatal metastatic esophageal and/or colon cancer at age 68. Mother with fatal metastatic colon cancer at age 68 with pulmonary metastases. - Tobacco Use Smoking Status *Q: Former Smoker Tobacco Use Within Last Twelve Months: No Years of Tobacco use: 28 Packs/Tins Daily: 1 Packs/Tins Daily Comment: Patient smoked between ages 11 and 39. Used Tobacco, but Quit: Yes Smoking Cessation Information Provided To Patient: Yes Second Hand Smoke Exposure: Yes Source of Second Hand Smoke Exposure: smokes Second Hand Smoke Education Provided: Yes - Caffeine Use Caffeine Use: Reports: Coffee (6 cups per day.), Soda (5 sodas per week.). Denies: Energy Drinks - Alcohol Use Alcohol Use History: No Days Per Week of Alcohol Use: 0 Number of Drinks Per Day: 0 Number of Drinks Per Day Comment: Alcohol abuse between ages 20 and 33 with outpatient addiction treatment. Total Drinks Per Week: 0 Alcohol Use in Last Twelve Months: No - Recreational Drug Use Recreational Drug Use: Yes Drug Use in Last 12 Months: No Recreational Drug Type: Reports: Marijuana/Hashish (Experimental at age 22). 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 ED EXAM, GENERAL - Physical Exam Exam: See Below Exam Limited By: No Limitations General Appearance: Alert, WD/WN, No Apparent Distress Head: Atraumatic, Normocephalic. No: Facial Swelling, Facial Tenderness, Sinus Tenderness Neck: Normal Inspection, Supple, Non-Tender, Full Range of Motion. No: Lymphadenopathy (L), Lymphadenopathy (R), Thyromegaly Respiratory/Chest: No Respiratory Distress, Lungs Clear, Normal Breath Sounds, No Accessory Muscle Use, Chest Non-Tender. No: Pleural Rub, Retractions Cardiovascular: Normal Peripheral Pulses, Regular Rate, Rhythm, No Gallop, No JVD, No Murmur, No Rub. No: No Edema (Dependent edema as below), Gallop/S3, Gallop/S4, Friction Rub Peripheral Pulses: 2+: Radial (L), Radial (R), Dorsalis Pedis (L), Dorsalis Pedis (R) GI/Abdominal: Normal Bowel Sounds, Soft, Non-Tender, No Organomegaly, No Distention, No Abnormal Bruit, No Mass, Pelvis Stable, Other (obese). No: Guarding (Female) Exam: Deferred Rectal (Female) Exam: Deferred Back Exam: Normal Inspection, Full Range of Motion. No: CVA Tenderness (L), CVA Tenderness (R), Muscle Spasm Extremities: Normal Capillary Refill, Pedal Edema (Trace bilateral pedal/ pretibial edema), Joint Swelling (Mild left knee effusion), Leg Pain (Moderate left knee pain by palpation and range of motion with no instability, crepitation , deformity, etc. with negative anterior drawer, Elaina's, etc.), Limited Range of Motion (Left knee secondary to pain). No: Krystal's Sign Neurological: Alert, Oriented, CN II-XII Intact, Normal Cognition, Normal Gait, Normal Reflexes (Negative Babinski's), No Motor/Sensory Deficits Psychiatric: Normal Affect, Normal Mood Skin Exam: Warm, Dry, Intact, Normal Color, No Rash. No: Diaphoretic, Wound/ Incision Lymphatic: No Adenopathy Course - Vital Signs Last Recorded V/S: Last Vital Signs Temp 36.3 C 08/25/19 16:00 Pulse 65 08/25/19 16:00 Resp 20 08/25/19 16:00 BP 151/67 H 08/25/19 16:00 Pulse Ox 96 08/25/19 16:00 Vital Signs - 24 hr 08/25/19 16:00 Temperature [ 36.3 C Temporal] Pulse, 65 Peripheral [ Right Pulse Oximetry] Respiratory 20 Rate Blood Pressure 151/67 H [Right Upper Arm] O2 Sat by Pulse 96 Oximetry - Orders/Labs/Meds Orders: Active Orders 24 hr Category Date Time Status Knee 3V Lt [CR] Stat Exams 08/25/19 16:19 Taken Durable Medical Equipment for Discharge [DME for Oth 08/25/19 16:48 Ordered Discharge] [COMM] Routine Labs: None Meds: Medications Discontinued Medications Generic Name Dose Route Start Last Admin Trade Name Freq PRN Reason Stop Dose Admin Ketorolac Tromethamine 60 mg 08/25/19 16:48 08/25/19 17:00 Toradol IM 08/25/19 16:49 60 mg ONETIME ONE Administration - Radiology Interpretation Free Text/Narrative:: X-rays of the left knee, 3 views, shows evidence of moderate osteoarthritic changes with no acute fracture, dislocation, etc. Mild effusion present. Departure - Departure Time of Disposition: 17:45 Disposition: Home, Self-Care 01 Clinical Impression: Mixed anxiety depressive disorder, Tobacco abuse counseling Knee sprain Qualifiers: Encounter type: initial encounter Involved ligament of knee: medial collateral ligament Laterality: left Qualified Code(s): S83.412A - Sprain of medial collateral ligament of left knee, initial encounter COPD (chronic obstructive pulmonary disease) Qualifiers: COPD type: emphysema Emphysema type: panlobular Qualified Code(s): J43.1 - Panlobular emphysema GERD (gastroesophageal reflux disease) Qualifiers: Esophagitis presence: without esophagitis Qualified Code(s): K21.9 - Gastro- esophageal reflux disease without esophagitis Hyperlipemia Qualifiers: Hyperlipidemia type: unspecified Qualified Code(s): E78.5 - Hyperlipidemia, unspecified Hypertension Qualifiers: Hypertension type: essential hypertension Qualified Code(s): I10 - Essential ( primary) hypertension - Discharge Information *PRESCRIPTION DRUG MONITORING PROGRAM REVIEWED*: Not Applicable *COPY OF PRESCRIPTION DRUG MONITORING REPORT IN PATIENT ERIC: Not Applicable Instructions: Steps to Quit Smoking, [id number], Health Risks of Smoking, Ketorolac injection, Knee Sprain, Adult Referrals: Annetta Salvador PA-C [Primary Care Provider] - Forms: ED Department Discharge, ED Return to Work/School Form Additional Instructions: 1. Followup with your regular provider in 7-10 days as directed for reevaluation. Depending on your symptoms at that time your provider may repeat x -rays, order an MRI of your left knee, or refer you to either physical therapy and/or an orthopedic surgeon for further evaluation. Bring these discharge instructions with you to that visit. 2. Tylenol 650 mg by mouth every 4 hours and/or OTC ibuprofen 2-3 tabs by mouth every 6 hours with food as directed./needed. You may stagger these medications for 48-72 hours only, which essentially means that you are receiving a pain medication about every 2 hours. Next dose of ibuprofen in 6 hours as needed secondary to medications given in the emergency room. 3. BenGay or equivalent, heating pad, and/or ice packs as directed. 4. Limited weightbearing of your left knee as discussed with continued knee brace and walker use 5. Work excuse- See Form 6. Stop all tobacco exposure [facility] as directed with counselling, information, etc. given 7. Immediately after this visit verify that your cellular telephone's voicemail has been activated and is empty. Also verify that your home telephone 's answering machine is operating properly and has space to receive messages. Note that it is sometimes necessary for us to be able to contact you at a later date to discuss your medical care. 8. Please remember that we are ALWAYS here for you and want to answer any questions you may have. Feel free to call the hospital any time and we call you back [facility]. Sepsis Event Note - Evaluation Sepsis Screening Result: No Definite Risk - Focused Exam Vital Signs: Vital Signs Temp Pulse Resp BP Pulse Ox 08/25/19 16:00 36.3 C 65 20 151/67 H 96 Date Exam was Performed: 08/25/19 Time Exam was Performed: 17:59 - Problem List & Annotations (1) Knee sprain SNOMED Code(s): 82782953 Code(s): S83.90XA - SPRAIN OF UNSPECIFIED SITE OF UNSPECIFIED KNEE, INIT ENCNTR Status: Acute Priority: High Current Visit: Yes Onset Date: 08/25 Annotation/Comment:: The patient apparently already has a walker at home. Work excuse provided. Symptomatic relief as per discharge instructions. The nurse did place a neoprene sleeve on the patient prior to discharge. Activity restrictions, etc. discussed. Close follow-up by regular provider as per discharge instructions. Qualifiers: Encounter type: initial encounter Involved ligament of knee: medial collateral ligament Laterality: left Qualified Code(s): S83.412A - Sprain of medial collateral ligament of left knee, initial encounter (2) COPD (chronic obstructive pulmonary disease) SNOMED Code(s): 73074169 Code(s): J44.9 - CHRONIC OBSTRUCTIVE PULMONARY DISEASE, UNSPECIFIED Status : Chronic Priority: Medium Current Visit: Yes Annotation/Comment:: No recent fever or bronchitic type symptoms. She has been compliant with her CPAP for her sleep apnea. Qualifiers: COPD type: emphysema Emphysema type: panlobular Qualified Code(s): J43.1 - Panlobular emphysema (3) GERD (gastroesophageal reflux disease) SNOMED Code(s): 190056323 Code(s): K21.9 - GASTRO-ESOPHAGEAL REFLUX DISEASE WITHOUT ESOPHAGITIS Status: Chronic Priority: Medium Current Visit: Yes Annotation/Comment:: Stable by history with no current abdominal complaints with current medical therapy. Qualifiers: Esophagitis presence: without esophagitis Qualified Code(s): K21.9 - Gastro -esophageal reflux disease without esophagitis (4) Hyperlipemia SNOMED Code(s): 82065833 Code(s): E78.5 - HYPERLIPIDEMIA, UNSPECIFIED Status: Chronic Priority: Medium Current Visit: Yes Annotation/Comment:: Currently under therapy. Weight loss in moderation is still advisable, including for her sleep apnea, etc. Qualifiers: Hyperlipidemia type: unspecified Qualified Code(s): E78.5 - Hyperlipidemia , unspecified (5) Hypertension SNOMED Code(s): 13693295 Code(s): I10 - ESSENTIAL (PRIMARY) HYPERTENSION Status: Chronic Priority : Medium Current Visit: Yes Annotation/Comment:: Blood pressure somewhat elevated in the emergency room secondary to discomfort. Continue to observe closely by her regular provider. Qualifiers: Hypertension type: essential hypertension Qualified Code(s): I10 - Essential (primary) hypertension (6) Mixed anxiety depressive disorder SNOMED Code(s): 718870686 Code(s): F41.8 - OTHER SPECIFIED ANXIETY DISORDERS Status: Chronic Priority: Medium Current Visit: Yes Annotation/Comment:: Stable by history with current medical therapy (7) Tobacco abuse counseling SNOMED Code(s): 427725890, 932444940, [id number] Code(s): Z71.6 - TOBACCO ABUSE COUNSELING Status: Chronic Priority: Medium Current Visit: Yes Annotation/Comment:: Patient smokes. Tobacco exposure was once again discussed with tobacco cessation strongly encouraged. Tobacco cessation information provided at discharge. - Problem List Review Problem List Initiated/Reviewed/Updated: Yes - My Orders Last 24 Hours: My Active Orders 08/25/19 16:19 Knee 3V Lt [CR] Stat 08/25/19 16:48 Durable Medical Equipment for Discharge [DME for Discharge] [COMM] Routine - Assessment/Plan Last 24 Hours: My Active Orders 08/25/19 16:19 Knee 3V Lt [CR] Stat 08/25/19 16:48 Durable Medical Equipment for Discharge [DME for Discharge] [COMM] Routine Assessment:: As above Plan: As above. Extensive precautions were given to the patient and her , who are in agreement with the treatment plan. See Patient Instructions for further treatment and plan.
[2019-08-25] MEDS ORDERED: Ketorolac 60 MG/2 ML SDV IM ONE (16:48)
== END 2019-08-25 17:42 | disposition home or self-care (01) ==
LOC: LL.ED 15:59
DX: F41.8 Other specified anxiety disorders (principal); Z71.6 Tobacco abuse counseling; I10 Essential (primary) hypertension; E78.00 Pure hypercholesterolemia, unspecified; J44.9 Chronic obstructive pulmonary disease, unspecified; K21.9 Gastro-esophageal reflux disease without esophagitis; E66.9 Obesity, unspecified; Z88.2 Allergy status to sulfonamides; Z88.6 Allergy status to analgesic agent; Z79.82 Long term (current) use of aspirin; Z79.899 Other long term (current) drug therapy; Z79.51 Long term (current) use of inhaled steroids; Z68.41 Body mass index [BMI] 40.0-44.9, adult; Z87.891 Personal history of nicotine dependence
CPT/HCPCS: 73562; 96372; 99283; J1885

== ENCOUNTER 2020-05-24 16:52 | Emergency (ER) | payer MEDICARE, OTHER ==
[2020-05-24] MEDS ORDERED: Famotidine 20 MG/2 ML SDV IVPUSH ONE (16:59)
[2020-05-24] MEDS ORDERED: Sodium Chloride 0.9% 10 ML Syringe FLUSH PRN (16:59)
--- NOTE | 2020-05-24 17:05 | EDM.PDOC ---
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 REFERENCE RANGE: NEGATIVE 05/24/20 18:10 Group A Streptococcus Rapid Screen - Final Throat NEGATIVE STREP A SCREEN REFERENCE RANGE: NEGATIVE Meds: Medications Generic Name Dose Route Start Last Admin Trade Name Freq PRN Reason Stop Dose Admin Sodium Chloride 10 ml 05/24/20 16:59 05/24/20 17:16 Saline Flush FLUSH 10 ml ASDIRECTED PRN Administration Keep Vein Open Discontinued Medications Generic Name Dose Route Start Last Admin Trade Name Freq PRN Reason Stop Dose Admin Doxycycline Monohydrate 100 mg 05/24/20 21:42 05/24/20 21:50 Doxycycline Monohydrate PO 05/24/20 21:43 100 mg ONETIME ONE Administration Famotidine 40 mg 05/24/20 16:59 05/24/20 17:16 Pepcid IVPUSH 05/24/20 17:00 40 mg ONETIME ONE Administration Iopamidol 100 ml 05/24/20 18:59 Isovue-370 (76%) IVPUSH 05/24/20 19:00 ONETIME STA Methylprednisolone Acetate 80 mg 05/24/20 21:35 05/24/20 21:43 Depo-Medrol IM 05/24/20 21:36 80 mg ONETIME ONE Administration - Radiology Interpretation Free Text/Narrative:: patient monitor showed normal sinus rhythm in the 60s 80s with no ectopy or arrhythmia. Chest x-ray, portable, showed moderate COPD changes with no significant pulmonary infiltrates, pneumothorax, cardiomegaly, or CHF. CTA of the chest using PE protocol was negative for PE with incidental moderate hiatal hernia, 5 mm right lower lobe pulmonary nodule, and chronic left rib deformity secondary to previous fracture. Mild left lower lobe opacities consistent with possible infection versus inflammation. Note that preliminary verbal report was not received from the radiology department at [facility] despite our previous request. Departure - Departure Time of Disposition: 22:05 Disposition: Home, Self-Care 01 Condition: Fair Clinical Impression: Mixed anxiety depressive disorder, Tobacco abuse counseling, PVC's (premature ventricular contractions), Bronchitis, Hypoalbuminemia, Elevated d-dimer COPD (chronic obstructive pulmonary disease) Qualifiers: COPD type: emphysema Emphysema type: panlobular Qualified Code(s): J43.1 - Panlobular emphysema GERD (gastroesophageal reflux disease) Qualifiers: Esophagitis presence: without esophagitis Qualified Code(s): K21.9 - Gastro- esophageal reflux disease without esophagitis Hypertension Qualifiers: Hypertension type: essential hypertension Qualified Code(s): I10 - Essential (primary) hypertension Sleep apnea Qualifiers: Sleep apnea type: idiopathic sleep related nonobstructive alveolar hypoventilation Qualified Code(s): G47.34 - Idiopathic sleep related nonobstructive alveolar hypoventilation - Discharge Information *PRESCRIPTION DRUG MONITORING PROGRAM REVIEWED*: Not Applicable *COPY OF PRESCRIPTION DRUG MONITORING REPORT IN PATIENT ERIC: Not Applicable Prescriptions: Dextromethorphan/guaiFENesin [Mucinex DM ER 600-30 MG] 1 tab PO BID #20 tab Doxycycline [Vibramycin] 100 mg PO BID #20 cap Instructions: Chronic Obstructive Pulmonary Disease, [id number], Acute Bro nchitis, Adult, [id number], Doxycycline tablets or capsules, Methylprednisolone Suspension for Injection Referrals: PCP,None [Primary Care Provider] - Forms: ED Department Discharge Additional Instructions: 1. Followup with your regular provider in 7 days as directed for reevaluation and recommended repeat CBC and D-dimer. Bring these discharge instructions with you to that visit. 2. Tylenol 650 mg by mouth every 4 hours and/or OTC ibuprofen 2-3 tabs by mouth every 6 hours with food as directed./needed. You may stagger these medications for 48-72 hours only, which essentially means that you are receiving a pain medication about every 2 hours. 3. This facility will call you on 05/25 in the AM for recommended venous Doppler studies of your legs bilaterally later on the day in this facility 4. Continue to use your DuoNeb nebulizer treatments 4 times a day with every 4 hours as needed until otherwise directed by your regular provider 5. Stop all tobacco exposure CHAIM as directed with counselling, information, etc. given at discharge. 6. Hygiene precautions as discussed. 7. Maintain recommended quarantine until you have been notified of today's COVID-19 test results as discussed with return to previous social distancing, use of masks, etc., thereafter as per current recommended CDC guidelines 8. The patient will be admitted to the cardiac rehabilitation program at [facility]. Patient should followup with his regular providers and spread cutter as already scheduled with no change in medical therapy for the time being. Never exceed the maximum level of exercise at home, etc. beyond the activity level achieved during each session of the cardiac rehabilitation program. Extensive precautions were given to the patient, who is in agreement with the treatment plan. 9. Please remember that we are ALWAYS here for you and want to answer any questions you may have. Feel free to call the hospital any time and we call you back CHAIM. 10. Continue to use your oxygen as directed to keep your O2 sats at 92% or greater as discussed with this facility to be notified, if you need more than 4 L/min by nasal cannula. Sepsis Event Note (ED) - Evaluation Sepsis Screening Result: No Definite Risk - Focused Exam Vital Signs: Vital Signs Temp Pulse Resp BP Pulse Ox 05/24/20 21:44 71 20 136/68 100 05/24/20 20:43 83 18 132/70 98 05/24/20 16:53 36.9 C 64 20 125/85 95 - Problem List & Annotations (1) Bronchitis SNOMED Code(s): 27810797 Code(s): J40 - BRONCHITIS, NOT SPECIFIED ACUTE OR CHRONIC Status: Acute Priority: High Current Visit: Yes Annotation/Comment:: Likely viral bronchitis with no significant fever or leukocytosis. COVID-19 rapid test was conducted with results pending and is possible etiology of her current infection. The patient already has oxygen at home and is normally oxygen dependent at night. The patient does have a home oximetry unit and was instructed how to use her oxygen to keep her O2 sats equal to or greater than 92%. Secondary to her history of recurrent bronchitis and pneumonia and significant O2 dependent COPD the patient will be initiated on doxycycline with initial dose given in the emergency room. This antibiotic will also be beneficial for her possible current COVID-19 infection as an anti-inflammatory agent. (2) Elevated d-dimer SNOMED Code(s): 109809581 Code(s): R79.89 - OTHER SPECIFIED ABNORMAL FINDINGS OF BLOOD CHEMISTRY Status: Acute Priority: High Current Visit: Yes Onset Date: 05/24/20 Annotation/Comment:: Negative CTA of the chest results as above. No clinical evidence of DVT or PE. Patient will return to this facility on 05/25 for venous Doppler studies of the lower extremities with copy of results to be sent to her regular provider, Carla Salvador PA-C at the [facility] in [place]. Anticoagulation therapy depending on these test results with preliminary verbal report to be given to me tomorrow. (3) Hypoalbuminemia SNOMED Code(s): 728754636 Code(s): E88.09 - [facility] DISORDERS OF PLASMA-PROTEIN METABOLISM, NEC Status: Acute Priority: Medium Current Visit: Yes Onset Date: 05/24/20 Annotation/Comment:: Observe for now. (4) PVC's (premature ventricular contractions) SNOMED Code(s): 01286100 Code(s): I49.3 - VENTRICULAR PREMATURE DEPOLARIZATION Status: Acute Priority: Medium Current Visit: Yes Onset Date: 05/24/20 Annotation/Comment:: Observe for now. No chest pain or true anginal type symptoms. Note negative EKG and cardiac enzymes with recent normal CT heart screen on 02/07/2020 as above. (5) COPD (chronic obstructive pulmonary disease) SNOMED Code(s): 34267592 Code(s): J44.9 - CHRONIC OBSTRUCTIVE PULMONARY DISEASE, UNSPECIFIED Status: Chronic Priority: Medium Current Visit: Yes Annotation/Comment:: As above. Mild exacerbation secondary to current bronchitis. IM Depo-Medrol given prior to patient discharge. The patient will start her DuoNeb treatments once again CHAIM when she returns home with strict compliance with nebulizer treatments until otherwise directed by her regular providers. She was provided nebulizer tubing. Qualifiers: COPD type: emphysema Emphysema type: panlobular Qualified Code(s): J43.1 - Panlobular emphysema (6) GERD (gastroesophageal reflux disease) SNOMED Code(s): 112658442 Code(s): K21.9 - GASTRO-ESOPHAGEAL REFLUX DISEASE WITHOUT ESOPHAGITIS Status: Chronic Priority: Medium Current Visit: Yes Annotation/Comment:: High-dose IV Pepcid given as GI prophylaxis. Stable by history with no current abdominal complaints with current medical therapy. Continue current Prilosec therapy. Qualifiers: Esophagitis presence: without esophagitis Qualified Code(s): K21.9 - Gastro-esophageal reflux disease without esophagitis (7) Hypertension SNOMED Code(s): 47680337 Code(s): I10 - ESSENTIAL (PRIMARY) HYPERTENSION Status: Chronic Priority: Medium Current Visit: Yes Annotation/Comment:: Blood pressures stable in the emergency room. Continue to observe closely by her regular provider. Qualifiers: Hypertension type: essential hypertension Qualified Code(s): I10 - Essential (primary) hypertension (8) Mixed anxiety depressive disorder SNOMED Code(s): 917524110 Code(s): F41.8 - OTHER SPECIFIED ANXIETY DISORDERS Status: Chronic Priority: Medium Current Visit: Yes Annotation/Comment:: Stable by history with current medical therapy (9) Sleep apnea SNOMED Code(s): 98850812 Code(s): G47.30 - SLEEP APNEA, UNSPECIFIED Status: Chronic Priority: Medium Current Visit: Yes Annotation/Comment:: She has been compliant with her CPAP. 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 Tobacco exposure was once again discussed with tobacco cessation strongly encouraged. Tobacco cessation information provided at discharge. - Problem List Review Problem List Initiated/Reviewed/Updated: Yes - My Orders Last 24 Hours: My Active Orders 05/24/20 Breakfast Nothing per Oral Now Diet [DIET] 05/24/20 16:59 Cardiac Monitoring [RC] . DIRECTED EKG Documentation Completion [RC] ASDIRECTED Oxygen Therapy, ED [RC] CONTINUOUS Peripheral IV Care [RC] . DIRECTED Pulse Oximetry [RC] CONTINUOUS Up With Assistance [RC] PFP Vital Signs [RC] PFP Chest 1V Frontal [CR] Stat Sodium Chloride 0.9% [Saline Flush] 10 ml FLUSH ASDIRECTED PRN Obtain Past Medical Record [OM.PC] Urgent Peripheral IV Insertion Adult [OM.PC] Stat Resuscitation Status Stat EKG 12 Lead [EK] Stat 05/24/20 17:04 Isolation [COMM] Routine 05/24/20 17:07 Blood Culture x2 Reflex Set [OM.PC] Urgent 05/24/20 17:15 CULTURE BLOOD [BC] Stat 05/24/20 17:25 CULTURE BLOOD [BC] Stat 05/24/20 18:10 CORONAVIRUS COVID-19 TOM [MOLEC] Stat CULTURE STREP A CONFIRMATION [RM] Stat STREP SCRN A RAPID W CULT CONF [RM] Stat 05/24/20 18:17 Chest PE [Ang Chest] [CT] Stat - Assessment/Plan Last 24 Hours: My Active Orders 05/24/20 Breakfast Nothing per Oral Now Diet [DIET] 05/24/20 16:59 Cardiac Monitoring [RC] . DIRECTED EKG Documentation Completion [RC] ASDIRECTED Oxygen Therapy, ED [RC] CONTINUOUS Peripheral IV Care [RC] . DIRECTED Pulse Oximetry [RC] CONTINUOUS Up With Assistance [RC] PFP Vital Signs [RC] PFP Chest 1V Frontal [CR] Stat Sodium Chloride 0.9% [Saline Flush] 10 ml FLUSH ASDIRECTED PRN Obtain Past Medical Record [OM.PC] Urgent Peripheral IV Insertion Adult [OM.PC] Stat Resuscitation Status Stat EKG 12 Lead [EK] Stat 05/24/20 17:04 Isolation [COMM] Routine 05/24/20 17:07 Blood Culture x2 Reflex Set [OM.PC] Urgent 05/24/20 17:15 CULTURE BLOOD [BC] Stat 05/24/20 17:25 CULTURE BLOOD [BC] Stat 05/24/20 18:10 CORONAVIRUS COVID-19 TOM [MOLEC] Stat CULTURE STREP A CONFIRMATION [RM] Stat STREP SCRN A RAPID W CULT CONF [RM] Stat 05/24/20 18:17 Chest PE [Ang Chest] [CT] Stat Assessment:: As above Plan: As above. Extensive precautions were given to the patient, who is in agreement with the treatment plan. See Patient Instructions for further treatment and plan.
[2020-05-24 17:31] LABS: PTT,PARTIAL THROMBOPLSTIN TIME 23.6 SEC (24.5-32.8)
[2020-05-24 17:44] LABS: CHLORIDE,CL 107 mmol/L (98-107); SODIUM,NA 142 mmol/L (136-145)
[2020-05-24] MEDS ORDERED: Iopamidol 755 Mg/ML 100 ML Bottle IVPUSH STA (18:59)
[2020-05-24] MEDS ORDERED: methylPREDNISolone Acetate 80 MG/ML SDV IM ONE (21:35)
[2020-05-24] MEDS ORDERED: Doxycycline Monohydrate 100 MG Cap PO ONE (21:42)
[2020-05-24 21:45] VITALS: BP 136/68; PULSE 71
== END 2020-05-24 22:05 | disposition home or self-care (01) ==
LOC: LL.ED 16:52
DX: J43.1 Panlobular emphysema (principal); G47.34 Idiopathic sleep related nonobstructive alveolar hypoventilation; I10 Essential (primary) hypertension; K21.9 Gastro-esophageal reflux disease without esophagitis; F41.8 Other specified anxiety disorders; E78.00 Pure hypercholesterolemia, unspecified; M19.90 Unspecified osteoarthritis, unspecified site; F41.9 Anxiety disorder, unspecified; F32.9 Major depressive disorder, single episode, unspecified; I49.3 Ventricular premature depolarization; J40 Bronchitis, not specified as acute or chronic; R79.1 Abnormal coagulation profile; E88.09 Other disorders of plasma-protein metabolism, not elsewhere classified; Z20.828 Contact with and (suspected) exposure to other viral communicable diseases; Z88.2 Allergy status to sulfonamides; Z88.5 Allergy status to narcotic agent; Z88.1 Allergy status to other antibiotic agents; Z79.82 Long term (current) use of aspirin; Z79.899 Other long term (current) drug therapy; Z87.891 Personal history of nicotine dependence
CPT/HCPCS: 36415; 71045; 71275; 80053; 82550; 82553; 83605; 83735; 83880; 84443; 84484; 84550; 85025; 85379; 85610; 85730; 87040; 87070; 87077; 87081; 87205; 87430; 87804; 93005; 96372; 96374; 99285-25; A9270-GY; J1040; J3490; U0002

== ENCOUNTER 2020-07-16 14:20 | Emergency (ER) | payer MEDICARE, OTHER ==
[2020-07-16] MEDS ORDERED: Sodium Chloride 0.9% 10 ML Syringe FLUSH PRN (14:34)
[2020-07-16 15:50] LABS: CHLORIDE,CL 104 mmol/L (98-107); SODIUM,NA 137 mmol/L (136-145)
[2020-07-16] MEDS ORDERED: Dexamethasone 10 MG/ML SDV IVPUSH ONE (16:24)
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
[2020-07-16 19:59] VITALS: BP 123/99; PULSE 58
== END 2020-07-16 17:35 ==
LOC: LL.ED 14:20
DX: U07.1 COVID-19 (principal); R09.02 Hypoxemia; E78.00 Pure hypercholesterolemia, unspecified; I10 Essential (primary) hypertension; J44.9 Chronic obstructive pulmonary disease, unspecified; K21.9 Gastro-esophageal reflux disease without esophagitis; F41.9 Anxiety disorder, unspecified; M19.90 Unspecified osteoarthritis, unspecified site; F32.9 Major depressive disorder, single episode, unspecified; E66.9 Obesity, unspecified; Z88.2 Allergy status to sulfonamides; Z88.5 Allergy status to narcotic agent; Z79.82 Long term (current) use of aspirin; Z79.899 Other long term (current) drug therapy
CPT/HCPCS: 36415; 71045; 80053; 81001; 83605; 83735; 83880; 84484; 85025; 85379; 85610; 87086; 87088; 87186; 96374; 99285-25; J1100; U0002

== ENCOUNTER 2022-12-03 13:04 | Emergency (ER) | payer MEDICARE ==
[2022-12-03] MEDS ORDERED: Sodium Chloride 0.9% 10 ML Syringe FLUSH PRN (13:30)
[2022-12-03 13:37] LABS: BASOPHILS ABSOLUTE AUTO 0.02 K/uL (0.00-0.20); BASOPHILS PERCENT AUTO 0.2 % (0.0-2.0); EOSINOPHILS ABSOLUTE AUTO 0.13 K/uL (0.00-0.50); EOSINOPHILS PERCENT AUTO 1.4 % (0.0-5.0); HEMATOCRIT 40.2 % (34.0-46.0); HEMOGLOBIN 12.5 g/dL (11.7-15.5); LYMPHOCYTES ABSOLUTE AUTO 1.86 K/uL (0.50-3.50); LYMPHOCYTES PERCENT AUTO 19.4 % (10.0-50.0); MEAN CORPUSCULAR HEMOGLOBIN 24.8 pg (28.2-33.3); MEAN CORPUSCULAR HGB CONC 31.1 g/dL (31.7-36.0); MEAN CORPUSCULAR VOLUME 79.8 fL (84.0-98.0); MONOCYTES ABSOLUTE AUTO 0.73 K/uL (0.00-1.00); MONOCYTES PERCENT AUTO 7.6 % (2.0-14.0); NEUTROPHILS ABSOLUTE AUTO 6.87 K/uL (1.40-7.00); NEUTROPHILS PERCENT AUTO 71.4 % (45.0-80.0); PLATELET COUNT,PLT 246 K/uL (150-350); RED BLOOD CELL COUNT 5.04 M/uL (3.77-5.09); RED CELL DISTRIBUTION WIDTH 15.5 % (11.2-14.1); WHITE BLOOD CELL COUNT,WBC 9.6 K/uL (4.0-10.2)
[2022-12-03 14:03] LABS: ALANINE AMINOTRANSFERASE,ALT 23 U/L (12-78); ALBUMIN 3.4 g/dL (3.4-5.0); ALKALINE PHOSPHATASE 121 IU/L (46-116); ANION GAP 7.7 meq/L (7-15); ASPARTATE AMNIOTRANSFERASE,AST 20 U/L (15-37); BILIRUBIN TOTAL 0.5 mg/dL (0.2-1.0); BLOOD UREA NITROGEN,BUN 14 mg/dL (7-18); CALCIUM 10.2 mg/dL (8.5-10.1); CARBON DIOXIDE,CO2 27.3 mmol/L (21.0-32.0); CHLORIDE,CL 105 mmol/L (98-107); CREATININE 0.99 mg/dL (0.51-1.17); GLUCOSE RANDOM 116 mg/dL (70-99); POTASSIUM,K 4.3 mmol/L (3.5-5.1); SODIUM,NA 140 mmol/L (136-145)
[2022-12-03 14:04] LABS: ESTIMATED GFR 61 mL/min (>=60)
[2022-12-03 15:20] LABS: CREATINE KINASE,CK 49 U/L (26-308)
[2022-12-03 18:30] VITALS: BP 134/99; PULSE 90
== END 2022-12-03 15:56 | disposition home or self-care (01) ==
LOC: LL.ED 13:04
DX: I47.1 Supraventricular tachycardia (principal); E78.00 Pure hypercholesterolemia, unspecified; I10 Essential (primary) hypertension; J44.9 Chronic obstructive pulmonary disease, unspecified; K21.9 Gastro-esophageal reflux disease without esophagitis; M19.90 Unspecified osteoarthritis, unspecified site; E66.9 Obesity, unspecified; Z88.2 Allergy status to sulfonamides; Z79.82 Long term (current) use of aspirin; Z79.899 Other long term (current) drug therapy
CPT/HCPCS: 36415; 71045; 80053; 82550; 84484; 85025; 93005; 99285

== ENCOUNTER 2024-06-12 14:52 | Emergency (ER) | payer MEDICARE ==
[2024-06-12 15:04] VITALS: BP 152/66; PULSE 70
[2024-06-12] MEDS: Take Home: Amoxicillin/Clavulanate K 875-125 MG Tab, 6 Tab Pack PO SCH (16:20)
== END 2024-06-12 16:23 | disposition home or self-care (01) ==
LOC: LL.ED 14:52
DX: L03.213 Periorbital cellulitis (principal); I10 Essential (primary) hypertension; E78.00 Pure hypercholesterolemia, unspecified; J44.9 Chronic obstructive pulmonary disease, unspecified; K21.9 Gastro-esophageal reflux disease without esophagitis; E66.9 Obesity, unspecified; Z90.49 Acquired absence of other specified parts of digestive tract; Z90.710 Acquired absence of both cervix and uterus; Z79.899 Other long term (current) drug therapy; Z79.82 Long term (current) use of aspirin; Z88.2 Allergy status to sulfonamides; Z88.5 Allergy status to narcotic agent; Z68.41 Body mass index [BMI] 40.0-44.9, adult
CPT/HCPCS: 99283; 99284; A9270-GY

== ENCOUNTER 2024-07-11 00:06 | Observation (INO) | payer MEDICARE ==
[2024-07-11] MEDS: Labetalol 20 MG/4 ML Syringe IVPUSH ONE ×4 (00:15→02:30)
[2024-07-11] MEDS: Albuterol/Ipratropium 3.0-0.5 MG/3 ML Neb Soln NEB ONE ×2 (00:28→01:13)
[2024-07-11] MEDS: Sodium Chloride 0.9% 1,000 ML IV SCH (00:31)
[2024-07-11] MEDS: methylPREDNISolone Sodium Succinate 40 MG/1 ML SDV IVPUSH ONE (00:41)
[2024-07-11 00:47] LABS: BASOPHILS ABSOLUTE AUTO 0.03 K/uL (0.00-0.20); BASOPHILS PERCENT AUTO 0.3 % (0.0-2.0); EOSINOPHILS ABSOLUTE AUTO 0.07 K/uL (0.00-0.50); EOSINOPHILS PERCENT AUTO 0.7 % (0.0-5.0); HEMATOCRIT 33.2 % (34.0-46.0); HEMOGLOBIN 10.3 g/dL (11.7-15.5); IMMATURE GRAN ABSOLUTE AUTO 0.03 10^3/uL (0.00-0.04); IMMATURE GRAN PERCENT AUTO 0.3 % (0.0-0.4); LYMPHOCYTES ABSOLUTE AUTO 1.83 K/uL (0.50-3.50); LYMPHOCYTES PERCENT AUTO 18.8 % (10.0-50.0); MEAN CORPUSCULAR HEMOGLOBIN 24.2 pg (28.2-33.3); MEAN CORPUSCULAR VOLUME 77.9 fL (84.0-98.0); MONOCYTES ABSOLUTE AUTO 0.77 K/uL (0.00-1.00); MONOCYTES PERCENT AUTO 7.9 % (2.0-14.0); PLATELET COUNT,PLT 170 K/uL (150-350); RED BLOOD CELL COUNT 4.26 M/uL (3.77-5.09); WHITE BLOOD CELL COUNT,WBC 9.7 K/uL (4.0-10.2)
[2024-07-11] MEDS: Diltiazem 25 MG/5 ML SDV IVPUSH ONE (00:48)
[2024-07-11] MEDS: Apixaban 5 MG Tab PO ONE (01:10)
[2024-07-11] MEDS: Diltiazem 125 MG in Sodium Chloride 0.9% 100 ML IV SCH (01:11)
[2024-07-11 01:16] LABS: LACTIC ACID 1.2 mmol/L (0.4-2.0)
[2024-07-11 01:18] LABS: ALANINE AMINOTRANSFERASE,ALT 14 U/L (12-78); ALBUMIN 2.8 g/dL (3.4-5.0); ALKALINE PHOSPHATASE 93 IU/L (46-116); ANION GAP 15.5 meq/L (7-15); ASPARTATE AMNIOTRANSFERASE,AST 10 U/L (15-37); BILIRUBIN TOTAL 0.4 mg/dL (0.2-1.0); BLOOD UREA NITROGEN,BUN 7 mg/dL (7-18); CALCIUM 9.1 mg/dL (8.5-10.1); CARBON DIOXIDE,CO2 25.2 mmol/L (21.0-32.0); CHLORIDE,CL 108 mmol/L (98-107); CREATININE 0.91 mg/dL (0.51-1.17); ESTIMATED GFR 67 mL/min (>=60); GLUCOSE RANDOM 132 mg/dL (70-99); POTASSIUM,K 3.7 mmol/L (3.5-5.1); PRO B-TYPE NATRIUR PEPT,BNPPRO 250 pg/mL (0-125); PROTEIN TOTAL,TP 6.3 g/dL (6.4-8.2); SODIUM,NA 145 mmol/L (136-145)
[2024-07-11 01:54] LABS: APPEARANCE,URINE SLIGHTLY CLOUDY; BILIRUBIN,URINE SMALL (NEGATIVE); COLOR,URINE YELLOW; GLUCOSE,URINE NEGATIVE (NEGATIVE); KETONES,URINE TRACE mg/dL (NEGATIVE); LEUKOCYTE ESTERASE,URINE MODERATE (NEGATIVE); NITRITE,URINE NEGATIVE (NEGATIVE); OCCULT BLOOD,URINE TRACE-INTACT (NEGATIVE); PH,URINE 6.5 (5.0-9.0); PROTEIN,URINE 100 mg/dL (NEGATIVE); UROBILINOGEN,URINE 0.2 E.U./dL (0.2-1.0)
[2024-07-11 02:00] LABS: BACTERIA,URINE FEW /HPF (NONE TO FEW); EPITHELIAL CELLS,URINE MODERATE /LPF; HYALINE CASTS,URINE OCCASIONAL; MUCUS,URINE MODERATE /LPF (NEGATIVE); RBC,URINE 0-5 /HPF; WBC,URINE 20-30 /HPF
[2024-07-11] MEDS: Albuterol/Ipratropium 3.0-0.5 MG/3 ML Neb Soln ONE (02:13)
[2024-07-11] MEDS: Levofloxacin 500 MG Tab PO SCH (02:18)
[2024-07-11] MEDS: Labetalol 20 MG/4 ML Syringe ONE (02:20)
[2024-07-11] MEDS: Albuterol/Ipratropium 3.0-0.5 MG/3 ML Neb Soln NEB PRN (02:24)
[2024-07-11] MEDS: Sodium Chloride 0.9% 10 ML Syringe FLUSH PRN (07:18)
[2024-07-11] MEDS: methylPREDNISolone Sodium Succinate 40 MG/1 ML SDV IVPUSH SCH (07:19)
[2024-07-11] MEDS ORDERED: Albuterol/Ipratropium 3.0-0.5 MG/3 ML Neb Soln INH PRN (08:50)
[2024-07-11] MEDS ORDERED: Furosemide 20 MG Tab PO PRN (08:50)
[2024-07-11] MEDS ORDERED: Fluticasone NASAL Spray 16 GM Bottle NASBOTH PRN (08:50)
[2024-07-11] MEDS ORDERED: Meclizine 25 MG Tab PO PRN (09:01)
[2024-07-11] MEDS ORDERED: REVEFENACIN 175 MCG INH SCH (09:27)
[2024-07-11] MEDS: Apixaban 5 MG Tab PO SCH (10:00)
[2024-07-11] MEDS: Metoprolol Succinate 50 MG Tab.ER PO SCH (10:01)
[2024-07-11] MEDS: Venlafaxine 75 MG Cap.ER PO SCH (10:02)
[2024-07-11] MEDS: metFORMIN 500 MG Tab PO SCH (10:02)
[2024-07-11] MEDS: Omeprazole 20 MG Cap.CR PO SCH (10:04)
[2024-07-11] MEDS: Montelukast 10 MG Tab PO SCH (10:04)
[2024-07-11] MEDS: Cetirizine 10 MG Tab PO SCH (10:04)
[2024-07-11] MEDS: Losartan 50 MG Tab PO SCH (10:05)
[2024-07-11] MEDS: buPROPion 150 MG Tab.ER PO SCH (10:05)
[2024-07-11] MEDS: Budesonide 0.5 MG/2 ML Neb Susp INH SCH (10:06)
[2024-07-11 11:01] VITALS: BP 124/55; PULSE 66
[2024-07-11] MEDS ORDERED: [UNRECOGNIZED DRUG - OTHER] INH SCH (18:00)
[2024-07-11] MEDS ORDERED: FORMOTEROL FUMARATE INH SCH (18:00)
[2024-07-11] MEDS ORDERED: atorvaSTATin 10 MG Tab PO SCH (20:00)
[2024-07-11] MEDS ORDERED: Arformoterol 15 MCG/2 ML Neb Soln INH SCH (20:00)
[2024-07-11] MEDS ORDERED: Non-Formulary Medication 1 Each (Simvastatin [Simvastatin] 20 MG Tablet) PO SCH (20:00)
[2024-07-12] MEDS ORDERED: Omeprazole 20 MG Cap.CR PO SCH (07:30)
[2024-07-12] MEDS ORDERED: Montelukast 10 MG Tab PO SCH (08:00)
[2024-07-12] MEDS ORDERED: Metoprolol Succinate 50 MG Tab.ER PO SCH (08:00)
[2024-07-12] MEDS ORDERED: Cetirizine 10 MG Tab PO SCH (08:00)
[2024-07-12] MEDS ORDERED: Venlafaxine 75 MG Cap.ER PO SCH (08:00)
[2024-07-12] MEDS ORDERED: buPROPion 150 MG Tab.ER PO SCH (08:00)
[2024-07-12] MEDS ORDERED: Losartan 50 MG Tab PO SCH (08:00)
== END 2024-07-11 11:35 | disposition home or self-care (01) ==
LOC: LL.ED 00:06 → LL.MS 01:52 → UNDOADMOB 02:00 → LL.MS 02:00 → UNDODISOB 11:35
PROVIDERS: ADMIT Physician Assistant; ATTEND Physician Assistant
DX: I48.0 Paroxysmal atrial fibrillation (principal); J44.1 Chronic obstructive pulmonary disease with (acute) exacerbation; I10 Essential (primary) hypertension; J43.1 Panlobular emphysema; I49.3 Ventricular premature depolarization; E78.00 Pure hypercholesterolemia, unspecified; K21.9 Gastro-esophageal reflux disease without esophagitis; G47.34 Idiopathic sleep related nonobstructive alveolar hypoventilation; F41.8 Other specified anxiety disorders; Z79.899 Other long term (current) drug therapy; Z88.0 Allergy status to penicillin; Z88.8 Allergy status to other drugs, medicaments and biological substances; Z88.2 Allergy status to sulfonamides
CPT/HCPCS: 36415; 71045; 80053; 81001; 83605; 83880; 84484; 85025; 87086; 87088; 87186; 87428-QW; 93005; 93010; 94640; 96365; 96375; 96376; 99236; 99285-25; A9270-GY; J1920; J2919; J3490; J7030; J7620-GY